=== PATIENT | male | born 1960 | race Two or more races ===

== ENCOUNTER 2020-10-18 12:52 | Outpatient (REF) | payer MEDICARE, SELFPAY | END 2020-10-18 12:53 | disposition home or self-care (01) | LOC: HO.LAB 12:52 | PROVIDERS: Visit Provider Internal Medicine | DX: Z20.822 Contact with and (suspected) exposure to COVID-19 (principal) | CPT/HCPCS: 36415; C9803; U0003; U0005 ==

== ENCOUNTER 2025-05-10 14:42 | Outpatient (AMB) | payer MEDICARE, SELFPAY ==
--- OUTSIDE RECORDS SUMMARY | 2025-05-10 16:02 | XMS_ITS | Clinical Summary ---
Author Organization [facility] [address] [facility] lding Address [address] [place] [address] Phone Care Team Providers Care Front Desk Agent Name Role Phone Danny Nuñez MD Primary Care Provider [phone] Allergies Active Allergy Reactions Criticality Noted Date Comments Other 03/21/2024 Seasonal Medications omeprazole (PriLOSEC) [address] capsule Take 1 capsule (20 mg total) by mouth 1 (one) time each day if needed. 4 Active PARoxetine (PAXIL) 40 mg tablet Take 1 tablet (40 mg total) by mouth 1 (one) time each day in the morning. Active lisinopril-hydr oCHLOROthiazide (PRINZIDE,ZESTO RETIC) 20-25 mg per tablet Take 1 tablet by mouth 1 (one) time each day. 90 tablet 1 5 Active indomethacin (INDOCIN) 50 mg capsule Take 1 capsule (50 mg total) by mouth 3 (three) times a day if needed (gout). 30 each 1 5 Active polyethylene glycol (Golytely) 236-22.74-6.74 -5.86 gram solution Take 4L by mouth once for one dose. May substitue any PEG. Starting at 6PM the night before your procedure drink 1 8oz glasses at your own pace until you complete half of the gallon. Finish 2nd half of the gallon 5 hours before your procedure. 4000 mL 5 Active bisacodyL (DULCOLAX) 5 mg EC tablet Take 2 tablets by mouth right before beginning bowel prep. See instructions provided by the office 2 tablet Active Active Problems Problem Noted Date Diagnosed Date Family history of colon cancer in father 025 Colon cancer screening 11/23/2024 Overview (11/23/2024): 05/03---5 yrs Hearing loss of left ear 01/12/2024 Obesity (BMI 30-39.9) 12/24/2022 Allergic rhinitis 06/24/2022 Hypertriglyceridemia 04/22/2016 Insomnia 04/22/2016 DDD (degenerative disc disease), lumbosacral 08/2016 Depression 01/04/2016 Essential hypertension 01/04/2016 Gastroesophageal reflux disease without esophagi tis 01/04/2016 Encounters Date Type Department Care Team Description 03/28/2025 1:22 PM EDT Anesthesia Event [facility] Endoscopy [address] [place] [phone] Deni Hagan MD Chang, Daniel J, MD 03/28/2025 11:21 AM EDT - 03/28/2025 11:59 PM EDT Hospital Encounter [facility] Endoscopy [address] [place] [phone] Troy Pacheco MD Spencer, Mark A, MD Hx of colonic polyps Discharge Disposition: Home or Self Care 03/15/2025 3:45 PM EDT Office Visit [facility] Hematology Oncology [address] [place] [phone] Chris Jett MD Neutropenia, unspecified type (CMS/HCC V24) (Primary Dx) 02/24/2025 12:00 PM EDT Office Visit [facility] Hematology Oncology [address] [place] [phone] Chris Jett MD Neutropenia, unspecified type (CMS/HCC V24); Thrombocytopenia (CMS/HCC V24) 02/10/2025 2:00 PM EDT Office Visit Adult Medicine [address] [phone] Nora Ctoo PA Neutropenia, unspecified type ([facility] V24) (Primary Dx); Thrombocytopenia ([facility] V24); Fever, unspecified fever cause 02/07/2025 2:51 PM EDT - 02/07/2025 6:52 PM EDT Emergency [facility] Emergency [address] [place] [address] Eugenio Cerda MD Fever, unspecified fever cause (Primary Dx); Thrombocytopenia ([facility] V24) Discharge Disposition: Home or Self Care from Last 3 Months Immunizations Name Administration Dates Next Due Hep B, Unspecified 04/18/2015 Influenza Quadrivalent, 0.5m l, preservative free (Fluarix; FluLaval; Fluzone) ages 6mo and older (Afluria) 3yo and older 05/13/2016 Influenza trivalent, 0.5mL, preservative free (Fluarix; FluLaval; Fluzone) ages 6mo and older (Afluria) 3 years and older 05/13/2016,10/25/2015,05/22/2014 Influenza, Unspecified 05/19/2018 BizXchange SARS-CoV-2 COVID-19, mRNA, LNP-S, preservative free 12/11/2020,11/20/2020 Tdap Tetanus diptheria acell ular pertussis (Boostrix; Adacel) 7yo and older 11/22/2024,07/12/2014 Zoster recombinant (Shingrix ) 19yo and older 12/23/2021,06/24/2021 Surgical History Surgery Date Site/Laterality Comments EYE SURGERY 2010 Left PROCEDURE: HISTORICAL EYE SURGERY COLONOSCOPY Medical History Medical History Date Comments DDD (degenerative disc disea se), lumbosacral 01/24/2016 DX:DDD (degenerative disc disease), lumbosacral Depression 01/04/2016 DX:Depression Essential hypertension 01/04/2016 DX:Essent ial hypertension Gastroesophageal reflux dise ase without esophagitis 01/04/2016 DX:Gastroesophageal reflux disease without esophagitis Hypertriglyceridemia 04/22/2016 DX:Hypertri glyceridemia Insomnia 04/22/2016 DX:Insomnia Gout Family History Medical History Relation Name Comments Hypertension Brother Cataracts Father Hypertension Father Prostate cancer Father Colon cancer Maternal Grandfather Diabetes Mother Other: ovarian cancer Mother stomac h history Colon cancer Paternal Grandmother Other: heart attack Son age 27 d eceased Blindness Neg Hx Glaucoma Neg Hx Macular degeneration Neg Hx Strabismus Neg Hx Relation Name Status Comments Brother Father Maternal Grandfather Mother Paternal Grandmother Son Social History Tobacco Use Types Packs/Day Years Used Date Smoking Tobacco: Never Smokeless Tobacco: Never Tobacco Cessation:Counseling Given: Not Answered Alcohol Use Standard Drinks/Week Comments No 0 (1 standard drink = 0.6 oz pur e alcohol) Housing Instability Answer Date Recorde d Are you worried that in the next 2 months you may not have stable housing? No 11/21/2024 Food Access & Nutrition Answer Date Rec orded Do you have access to a vari ety of food including fruits and vegetables? Yes 11/21/2024 Access to Healthcare Answer Date Record ed Within the last 3 months, ho w many times did you visit the emergency department for your medical care? 0 11/21/2024 Health Literacy Answer Date Recorded How often do you need to hav e someone help you when you read instructions, pamphlets, or other written material from your doctor or pharmacy? Never 11/21/2024 Caregiver: How often do you need to have someone help you when you read instructions, pamphlets, or other written material from your doctor or pharmacy? Not on file 11/21/2024 Financial Risk Answer Date Recorded How hard is it for you to pa y for the very basics like food, housing, medical care, and air conditioning / heating? Not very hard 11/21/2024 Transportation Answer Date Recorded Has the lack of transportati on kept you from meetings, work, or from getting things needed for daily living? No Has the lack of transportati on kept you from medical appointments or from getting medications? No 11/21/2024 Social Isolation Answer Date Recorded How often do you feel lonely or isolated from th ose around you? Never 11/21/2024 Food Risk Answer Date Recorded Within the past 12 months we worried whether our food would run out before we got money to buy more. Never true 11/21/2024 Within the past 12 months th e food we bought just didn't last and we didn't have money to get more. Never true 11/21/2024 Dependent Care Answer Date Recorded Do you need help finding or paying for care for your loved ones. For example, early childhood coordinator or elderly care for an older adult? No 11/21/2024 Education Answer Date Recorded Do you think completing more education or training, like finishing a GED, going to college, or learning a trade, would be helpful for you? No 11/21/2024 Employment and Income Answer Date Recor ded During the last four weeks, have you been actively looking for work? No 11/21/2024 Living Situation Answer Date Recorded What is your living situation? 0 11/21/2024 Interpersonal Safety Answer Date Record ed Physical Abuse 03/28/2025 Verbal Abuse 03/28/2025 Sex and Gender Information Value Date Recorded Sex Assigned at Male 02/07/2025 3:14 PM EDT Legal Sex Male 6:16 PM EST Gender Identity Male 02/07/2025 3:14 PM EDT Sexual Orientation Straight 02/07/2025 3: 14 PM EDT Obstetrics History Last Filed Vital Signs Vital Sign Reading Time Taken Comments Blood Pressure 121/74 03/28/2025 1:52 PM EDT Pulse 67 03/28/2025 1:52 PM EDT Temperature 36.6 C (97.8 F) 03/28/2025 1:32 PM EDT Respiratory Rate 14 03/28/2025 1:52 PM EDT Oxygen Saturation 100% 03/28/2025 1:52 PM EDT Inhaled Oxygen Concentration - - Weight 90.7 kg (200 lb) 03/28/2025 12:24 PM EDT Height 175.3 cm (5' 9 ) 03/28/2025 12:24 PM EDT Body Mass Index 29.53 03/28/2025 12:24 PM EDT Plan of Treatment Upcoming Encounters Date Type Department Care Team (Late st Contact Info) Description 05/30/2025 10:30 AM EDT Office Visit Adult Medicine - [facility] [address] [place] [phone] Danny Nuñez MD [address] [place] [address] Health Maintenance Due Date Last Done Comments Hepatitis B Vaccines (2 of 3 - 19+ 3-dose series) 05/16/2015 04/18/2015 Medicare Annual Wellness Visit 08/23/2022 COVID-19 Vaccine ( season) 2024 09/12/2022, 09/11/2021, 12/11/2020, Additional history exists Depression Screening 09/14/2024 Influenza Vaccine (#1) 2025 , 09/14/2022, 06/27/2022, Additional history exists Social Influencers of Health Screening 11/21/2025 11/21/2024 Hypertension/CHF/CAD Annual BMP Blood Test 02/07/2026 02/07/2025, 01/12/2025, 01/12/2024, Additional history exists Cholesterol Screening (Lipid Panel) 01/12/2030 01/12/2025, 01/12/2024, 01/12/2024 DTaP,Tdap,and Td Vaccines (3 - Td or Tdap) 11/22/2034 11/22/2024, 07/12/2014, 07/12/2014 Colorectal Cancer Screening: Colonoscopy 03/28/2035 03/28/2025, 05/07/2020 RSV Immunization Adult Patients (1 - 1-dose 75+ series) 02/04/2036 HIV Screening Completed 01/04/2016 Hepatitis C Screening Completed 01/04/2016 Zoster Vaccines Completed 12/23/2021, 09/15, 07/09/2021, Additional history exists HIB Vaccines Aged Out No longer eligi ble based on patient's age to complete this topic HPV Vaccines Aged Out No longer eligi ble based on patient's age to complete this topic Hepatitis A Vaccines Aged Out No long er eligible based on patient's age to complete this topic IPV Vaccines Aged Out No longer eligi ble based on patient's age to complete this topic MMR Vaccines Aged Out No longer eligi ble based on patient's age to complete this topic Meningococcal ACWY Vaccine Aged Out N o longer eligible based on patient's age to complete this topic Meningococcal B Vaccine Aged Out No l onger eligible based on patient's age to complete this topic Pneumococcal Vaccine: 50+ Years Discontinued RSV Immunization Patients Under 20 months Aged Out No longer eligible based on patient's age to complete this topic Varicella Vaccines Aged Out No longer eligible based on patient's age to complete this topic Procedures Procedure Name Priority Date/Time Associated Diagnosis Comments COLONOSCOPY Routine 03/28/2025 1:31 PM EDT Hx of colonic polyps CBC WITH AUTO DIFFERENTIAL Routine 02/24/2025 1:09 PM EDT Neutropenia, unspecified type (CMS/HCC V24) Thrombocytopenia (CMS/HCC V24) RETICULOCYTE COUNT Routine 02/24/2025 1: 09 PM EDT Neutropenia, unspecified type (CMS/HCC V24) Thrombocytopenia (CMS/HCC V24) CBC AND DIFFERENTIAL Routine 02/24/2025 1:09 PM EDT Neutropenia, unspecified type (CMS/HCC V24) Thrombocytopenia (CMS/HCC V24) BORRELIA BURGDORFERI ANTIBODY STAT 02/07/2025 3:46 PM EDT ANAPLASMA PHAGOCYTOPHILUM ANTIBODIES, IGG AND IGM STAT 02/07/2025 3:46 PM EDT BABESIA MICROTI ANTIBODIES, IGG AND IGM STAT 02/07/2025 3:46 PM EDT CULTURE BLOOD STAT 02/07/2025 3:46 PM EDT CULTURE BLOOD STAT 02/07/2025 3:46 PM EDT XR CHEST 2 VIEWS STAT 02/07/2025 3:41 PM EDT SUBRAMANIAN URINE CULTURE TUBE STAT 02/08/20 3:34 PM EDT URINALYSIS WITH REFLEX MICROSCOPIC AND CULTURE STAT 02/07/2025 3:34 PM EDT URINALYSIS WITH REFLEX MICROSCOPIC AND CULTURE STAT 02/07/2025 3:34 PM EDT CULTURE URINE STAT 02/07/2025 3:34 PM EDT RESPIRATORY VIRUS PANEL MOLECULAR STUDY STAT 02/07/2025 3:34 PM EDT MANUAL DIFFERENTIAL - SYSMEX WAM STAT 02/07/2025 11:56 AM EDT PATHOLOGIST REVIEW BLOOD SMEAR STAT 02/07/2025 11:56 AM EDT CBC WITH AUTO DIFFERENTIAL STAT 02/07/2025 11:56 AM EDT MAGNESIUM STAT 02/07/2025 11:56 AM EDT BASIC METABOLIC PANEL STAT 02/07/2025 11:56 AM EDT CBC AND DIFFERENTIAL STAT 02/07/2025 11:56 AM EDT [id number], RSV, FLU A AND B QUALITATIVE RT-PCR, INTERNAL LAB STAT 02/07/2025 11:55 AM EDT LIPID PANEL WITH REFLEX TO DIRECT LDL Routine 01/12/2025 12:30 PM EDT Hypertriglyceridemi a HEPATITIS C SCREENING Routine 01/04/2016 HIV SCREENING Routine 01/04/2016 from Last 3 Months or Most Recently Relevant to Health Maintenance Results * COLONOSCOPY Anesthesia - MAC; [facility] ENDOSCOPY (03/28/2025 1:31 PM EDT) Anatomical Region Laterality Modality Other 03/28/2025 1:14 PM EDT Impressions 03/28/2025 1:35 PM EDT - The entire examined colon is normal. - No specimens collected. Recommendation: - Repeat colonoscopy in 5 years for surveillance. Narrative 03/28/2025 1:35 PM EDT [facility] GI Patient Name: Javi Pena Procedure Date: 03/28/2025 1:14 PM Date of : 1960 Age: 65 Gender: Male Note Status: Finalized Attending MD: Troy Pacheco MD, Procedure Date No Time: 03/28/2025 Procedure: Colonoscopy Indications: High risk colon cancer surveillance: Personal history of colonic polyps Providers: Troy Pacheco MD Referring MD: Troy Pacheco MD Medicines: Propofol per Anesthesia Complications: No immediate complications. Estimated Blood Loss: Estimated blood loss: none. Procedure: Pre-Anesthesia Assessment: - ASA Grade Assessment: II - A patient with mild systemic disease. After I obtained informed consent, the scope was passed under direct vision. Throughout the procedure, the patient's blood pressure, pulse, and oxygen saturations were monitored continuously.The Colonoscope was introduced through the anus and advanced to the cecum, identified by appendiceal orifice and ileocecal valve. The colonoscopy was performed without difficulty. The patient tolerated the procedure well. The quality of the bowel preparation was good. Findings: The perianal and digital rectal examinations were normal. The entire examined colon appeared normal. Procedure Code(s): --- Professional --- G0105, Colorectal cancer screening; colonoscopy on individual at high risk Diagnosis Code(s): --- Professional --- Z86.010, Personal history of colonic polyps CPT copyright 2020 [employer] [employer]. All rights reserved. The codes documented in this report are preliminary and upon emr specialist review may be revised to meet current compliance requirements. Troy Pacheco MD 03/28/2025 1:35:26 PM This report has been signed electronically.Troy Pacheco MD Number of Addenda: 0 Note Initiated On: 03/28/2025 1:14 PM Scope In: Scope Out: Endoscopy Department at [facility] - [address] [place] [phone] Procedure Note Troy Pacheco MD - 03/28/2025 [facility] GI Patient Name: Javi Pena Procedure Date: 03/28/2025 1:14 PM Date of : 1960 Age: 65 Gender: Male Note Status: Finalized Attending MD: Troy Pacheco MD, Procedure Date No Time: 03/28/2025 Procedure: Colonoscopy Indications: High risk colon cancer surveillance: Personalhistory of colonic polyps Providers: Troy Pacheco MD Referring MD: Troy Pacheco MD Medicines: Propofol per Anesthesia Complications: No immediate complications. Estimated Blood Loss: Estimated blood loss: none. Procedure: Pre-Anesthesia Assessment: - ASA Grade Assessment: II - A patient with mild systemic disease. After I obtained informed consent, the scope was passed under direct vision. Throughout theprocedure, the patient's blood pressure, pulse, and oxygen saturations were monitored continuously.The Colonoscope was introduced through the anus and advanced to the cecum, identified by appendiceal orifice and ileocecal valve. The colonoscopy was performed without difficulty. The patient tolerated the procedure well. The quality of the bowel preparation was good. Findings: The perianal and digital rectal examinations were normal. The entire examined colon appeared normal. Procedure Code(s): --- Professional --- G0105, Colorectal cancer screening; colonoscopy on individual at high risk Diagnosis Code(s): --- Professional --- Z86.010, Personal history of colonic polyps CPT copyright 2020 [employer]. All rights reserved. The codes documented in this report are preliminary and upon emr specialist reviewmay be revised to meet current compliance requirements. Troy Pacheco MD 03/28/2025 1:35:26 PM This report has been signed electronically.Troy Pacheco MD Number of Addenda: 0 Note Initiated On: 03/28/2025 1:14 PM Scope In: Scope Out: Endoscopy Department at [facility] - [address] [place] [phone] IMPRESSION: - The entire examined colon is normal. - No specimens collected. Recommendation: - Repeat colonoscopy in 5 years for surveillance. us Troy Pacheco MD GI~PROCEDURE ORDERABLES Final Re sult * (ABNORMAL) CBC auto differential (02/24/2025 1:09 PM EDT) Only the most recent of2 resultswithin the time period is included. WBC 4.7(L) 4.8 - 10.8 K/[facility] LAB HEMETOLOGY METHOD 02/24/2025 1:38 PM EDT [facility] RBC 4.90 4.50 - 5.50 M/[facility] LAB HEMETOLOGY METHOD 02/24/2025 1:38 PM EDT [facility] LAB Hemoglobin 13.9 13.5 - 17.5 g/dL LAB HEMETOLOGY METHOD 02/24/2025 1:38 PM EDT [facility] LAB Hematocrit 42.7 42.0 - 54.0 % LAB HEMETOLOGY METHOD [facility]25 [facility] MCV 87.5 79.0 - 98.0 FL LAB HEMETOLOGY METHOD 02/24/2025 1:38 PM EDT [facility] MCH 28.5 27.0 - 32.0 pcg LAB HEMETOLOGY METHOD 02/24/2025 1:38 [facility] MCHC 32.6 32.0 - 37.0 g/dL LAB HEMETOLOGY METHOD 02/24/2025 1:38 PM [facility] LAB RDW 13.1 11.0 - 15.0 % LAB HEMETOLOGY METHOD 02/24/2025 1:38 [facility] Platelets 216 130 - 400 K/mcL LAB HEMETOLOGY METHOD 02/24/2025 1:38 PM [facility] LAB MPV 9.7 7.0 - 11.0 FL LAB HEMETOLOGY METHOD 02/24/2025 1:38 PM [facility] LAB NRBC 0.0 <1.0 % LAB HEMETOLOGY METHOD 02/24/2025 1:38 PM EDT [facility] NRBC Absolute 0.00 <0.10 K/mcL LAB HEMETOLOGY METHOD 02/24/2025 1:38 [facility] Neutrophils Relative 54.0 % LAB HEMETOLOGY METHOD 02/24/2025 1:38 [facility] Lymphocytes Relative 34.2 % LAB HEMETOLOGY METHOD 02/24/2025 1:38 [facility] Monocytes Relative 9.5 % LAB HEMETOLOGY METHOD 02/24/2025 1:38 PM EDT [facility] Eosinophils Relative 1.3 % LAB HEMETOLOGY METHOD 02/24/2025 1:38 PM EDT [facility] Basophils Relative 0.6 % LAB HEMETOLOGY METHOD 02/24/2025 1:38 PM EDT [facility] Immature Granulocytes Relative 0.4 % LAB HEMETOLOGY METHOD 02/24/2025 1:38 PM EDT [facility] Neutrophils Absolute 2.56 1.50 - 7.00 K/mcL LAB HEMETOLOGY METHOD 02/24/2025 1:38 PM EDT [facility] Lymphocytes Absolute 1.62 1.00 - 5.00 K/mcL LAB HEMETOLOGY METHOD 02/24/2025 1:38 PM EDT [facility] Monocytes Absolute 0.45 0.20 - 1.00 K/mcL LAB HEMETOLOGY METHOD 02/24/2025 1:38 PM EDT [facility] Eosinophils Absolute 0.06 0.00 - 0.50 K/mcL LAB HEMETOLOGY METHOD 02/24/2025 1:38 PM EDT [facility] Basophils Absolute 0.03 0.00 - 0.20 K/mcL LAB HEMETOLOGY METHOD 02/24/2025 1:38 PM EDT [facility] Immature Granulocytes Absolute 0.02 0.00 - 0.03 K/mcL LAB HEMETOLOGY METHOD 02/24/2025 1:38 PM EDT [facility] Blood Venous blood specimen / Unknown Venipuncture / Unknown 02/24/2025 1:09 PM EDT 02/24/2025 1:30 PM EDT us Chris U Johnie GALVAN LAB BLOOD ORDERABLES Final R esult [facility] [address] [place] [address], [place] [phone] * Reticulocyte count (02/24/2025 1:09 PM EDT) [facility] Retic Ct Abs 0.080 0.030 - 0.090 M/mcL LAB HEMETOLOGY METHOD 02/24/2025 1:38 PM EDT [facility] LAB Retic Ct Pct 1.7 0.7 - 1.7 % LAB HEMETOLOGY METHOD 02/24/2025 1:38 PM EDT [facility] Immature Retic Fract 9.0 2.3 - 15.9 % LAB HEMETOLOGY METHOD 02/24/2025 1:38 PM EDT [facility] Reticulocyte Hemoglobin 32.9 >29.0 pcg LAB HEMETOLOGY METHOD 02/24/2025 1:38 PM EDT [facility] Blood Venous blood specimen / Unknown Venipuncture / Unknown 02/24/2025 1:09 PM EDT 02/24/2025 1:30 PM EDT Chris Jett MD LAB BLOOD ORDERABLES Final R esult [facility] [address] [place] [address], [place] [phone] * Babesia microti antibodies, IGG and IGM (02/07/2025 3:46 PM EDT) [facility] Babesia microti IgG Antibodies <1:64 02/14/2025 7:41 PM EDT [facility] Babesia microti IgM Antibodies <1:20 02/14/2025 7:41 PM EDT [facility] Babesia microti Interpretation SEE NOTE 02/14/2025 7:41 PM EDT [facility] Comment: ANTIBODY NOT DETECTED REFERENCE RANGES: IgG <1:64 IgM <1:20 Elevated antibody levels to B. microti indicate exposure to the organism. Human babesiosis infection is transmitted by the bite of an infected Ixodes tick or less frequently from transfusion with blood from an infected donor. Definitive diagnosis is made by identifying intraerythrocytic organisms in peripheral blood. In patients with low parasitemia, antibody detection by IFA is recommended. IgG levels greater than or equal to 1:1024 can be detected in acute phase patients with parasites in blood smears. The IFA assay can be used as a seroepidemiologic tool to study the frequency and distribution of B. microti in endemic areas especially in persons with mixed infections also involving Borrelia burgdorferi. This test was developed and its analytical performance characteristics have been determined by [facility]. It has not been cleared or approved by FDA. This assay has been validated pursuant to the CLIA regulations and is used for clinical purposes. Test Performed at: [facility] [address] [address] Monserrat Pedraza MD, PhD Blood Venous blood specimen / Unknown Venipuncture / Unknown 02/07/2025 3:46 PM EDT 02/07/2025 3:55 PM EDT us Eugenio Cerda MD LAB BLOOD ORDERABLES Final R esult [facility] [address] [place] [address] * Anaplasma phagocytophilum antibodies, IGG and IGM (02/07/2025 3:46 PM EDT) Anaplasma phagocytophilum IgG Ab <1:64 <1:64 02/13/2025 10:02 PM EDT [facility] Anaplasma phagocytophilum IgM Ab <1:20 <1:20 02/13/2025 10:02 PM EDT [facility] Anaplasma phagocytophilum Interpretation SEE BELOW 02/13/2025 10:02 PM EDT [facility] Comment:Antibody Not Detecte d Comment SEE BELOW 02/13/2025 10:02 PM EDT [facility] Comment: Anaplasma phagocytophilum is the tick-borne agent causing Human Granulocytic Ehrlichiosis (HGE). HGE is distinct and separate from Human Monocytic Ehrlichiosis (HME), caused by Ehrlichia chaffeensis. Serologic crossreactivity between A. phagocyto- philum and E. chaffeensis is minimal (5-15%). This test was developed and its analytical performance characteristics have been determined by [facility] [place]. It has not been cleared or approved by the U.S. Food and Drug Administration. This assay has been validated pursuant to the CLIA regulations and is used for clinical purposes. Test Performed by [facility], [facility], [address] [place] [address] Eugenio Castle M.D., Ph.D., Director of Laboratories , CLIA [id number] Blood Venous blood specimen / Unknown Venipuncture / Unknown 02/07/2025 3:46 PM EDT 02/07/2025 3:55 PM EDT us Eugenio Cerda MD LAB BLOOD ORDERABLES Final R esult Performing Organization Address City/[facility]/ZIP Co de Phone Number [facility] [address] [place] [address] * Borrelia burgdorferi antibody (02/07/2025 3:46 PM EDT) [facility] Lyme Ab Negative Negative LAB CHEMISTRY METHOD 02/08/2025 10:38 AM EDT [facility] Comment: No laboratory evidence of infection with B. burgdorferi (Lyme disease). Negative results may occur in patients recently infected (<=14 days) with B. burgdorferi. If recent infection is suspected, repeat testing on a new sample collected in 7- 14 days is recommended. Blood Venous blood specimen / Unknown Venipuncture / Unknown 02/07/2025 3:46 PM EDT 02/07/2025 3:55 PM EDT us Eugenio Cerda MD LAB BLOOD ORDERABLES Final R esult Performing Organization Address City/[facility]/ZIP Co de Phone Number [facility] [address] [place] [address], * Blood Culture, Peripheral #2 (02/07/2025 3:46 PM EDT) Only the most recent of2 resultswithin the time period is included. Culture, Blood No growth at 5 days 02/12/2025 5:01 PM EDT [facility] Blood Venous blood specimen / Unknown Venipuncture / Unknown 02/07/2025 3:46 PM EDT 02/07/2025 3:55 PM EDT us Eugenio Cerda MD LAB MICROBIOLOGY - GENERAL O RDERABLES Final Result [facility] [address] [place] [address], [place] [phone] * XR Chest 2 Views (02/07/2025 3:41 PM EDT) Anatomical Region Laterality Modality Body Radiographic Elizabeth ging 02/07/2025 3:55 PM EDT Impressions 02/07/2025 3:55 PM EDT FINDINGS/IMPRESSION: Normal heart size and pulmonary vascularity. Lungs are clear and costophrenic angles are sharp. No acute osseous abnormality.. -------- FINAL REPORT -------- Dictated By: Emmanuel Gonzalez Dictated Date: 02/07/2025 15:55 ET Assigned Physician: Emmanuel Gonzalez Reviewed and Electronically Signed By: Emmanuel Gonzalez Signed Date: 02/07/2025 15:55 ET Workstation ID: [id number] Transcribed By: Self Edit Transcribed Date: 02/07/2025 15:55 ET Narrative 02/07/2025 3:55 PM EDT XR CHEST 2 VIEWS INDICATION: fever TECHNIQUE: XR CHEST 2 VIEWS COMPARISON: No priors available. Procedure Note Emmanuel Gonzalez MD - 02/07/2025 XR CHEST 2 VIEWS INDICATION: fever TECHNIQUE: XR CHEST 2 VIEWS COMPARISON: No priors available. IMPRESSION: FINDINGS/IMPRESSION: Normal heart size and pulmonary vascularity. Lungsare clear and costophrenic angles are sharp. No acute osseousabnormality.. -------- FINAL REPORT -------- Dictated By: Emmanuel Gonzalez Dictated Date: 02/07/2025 15:55 ET Assigned Physician: Emmanuel Gonzalez Reviewed and Electronically Signed By: Emmanuel Gonzalez Signed Date: 02/07/2025 15:55 ET Workstation ID: [id number] Transcribed By: Self Edit Transcribed Date: 02/07/2025 15:55 ET us Eugenio Cerda MD IMG XR PROCEDURES Final Resu lt * (ABNORMAL) Urinalysis with reflex microscopic and culture (02/07/2025 3:34 PM EDT) Specific [place] Urine 1.023 1.003 - 1.030 LAB URINALYSIS - AUTOMATED METHOD 02/07/2025 4:33 PM [facility] pH, Urine 5.5 5.0 - 8.0 pH LAB URINALYSIS - AUTOMATED METHOD 02/07/2025 4:33 PM [facility] Leukocytes, Urine Trace(A) Negative LAB URINALYSIS - AUTOMATED METHOD 02/07/2025 4:33 PM [facility] Nitrite, Urine Negative Negative LAB URINALYSIS - AUTOMATED METHOD 02/07/2025 4:33 PM [facility] Protein, Urine 100(A) <=Trace mg/dL LAB URINALYSIS - AUTOMATED METHOD 02/07/2025 4:33 PM [facility] Glucose, Urine Negative Negative mg/dL LAB URINALYSIS - AUTOMATED METHOD 02/07/2025 4:33 PM [facility] Ketones, Urine Trace(A) Negative mg/dL LAB URINALYSIS - AUTOMATED METHOD 02/07/2025 4:33 PM [facility] Urobilinogen, Urine 1.0 0.2 - 1.0 mg/dL LAB URINALYSIS - AUTOMATED METHOD 02/07/2025 4:33 PM [facility] Bilirubin, Urine Negative Negative LAB URINALYSIS - AUTOMATED METHOD 02/07/2025 4:33 PM EDT [facility] Blood, Urine Trace(A) Negative LAB URINALYSIS - AUTOMATED METHOD 02/07/2025 4:33 PM EDT [facility] RBC, Urine 4.2(H) 0 - 4 /HPF LAB URINALYSIS - AUTOMATED METHOD 02/07/2025 4:33 PM [facility] WBC, Urine 4.1(H) 0 - 4 /HPF LAB URINALYSIS - AUTOMATED METHOD 02/07/2025 4:33 PM T [facility] Squamous Epithelial, Urine 19 0 - 60 /LPF LAB URINALYSIS - AUTOMATED METHOD 02/07[facility]2025 [facility] Bacteria, Urine Negative Negative /HPF LAB URINALYSIS - AUTOMATED METHOD 02/07/2025 4:33 PM [facility] Hyaline Casts, Urine 1.6 0 - 3 /LPF LAB URINALYSIS - AUTOMATED METHOD 02/07/2025 4:33 PM [facility] Urine Urine specimen obtained by clean catch procedure / Unknown Non-blood Collection / Unknown 02/07/2025 3:34 PM EDT 02/07/2025 3:54 PM EDT us Eugenio Cerda MD LAB URINE ORDERABLES Final R esult [facility] [address] [place] [address], * Respiratory virus panel molecular study (02/07/2025 3:34 PM EDT) Pathologist [facility] Adenovirus Detection by PCR Not Detected Not Detected LAB MICROBIOLOGY METHOD 02/07/2025 4:52 PM EDT [facility] Influenza A PCR Not Detected Not Detected LAB MICROBIOLOGY METHOD 02/07/2025 4:52 PM EDT [facility] Influenza B PCR Not Detected Not Detected LAB MICROBIOLOGY METHOD 02/07/2025 4:52 PM EDT [facility] Coronavirus 229E Not Detected Not Detected LAB MICROBIOLOGY METHOD 02/07/2025 4:52 PM EDT [facility] Coronavirus HKU1 Not Detected Not Detected LAB MICROBIOLOGY METHOD 02/07/2025 4:52 PM EDT [facility] Coronavirus OC43 Not Detected Not Detected LAB MICROBIOLOGY METHOD 02/07/2025 4:52 PM EDT [facility] Coronavirus NL63 Not Detected Not Detected LAB MICROBIOLOGY METHOD 02/07/2025 4:52 PM EDT [facility] Parainfluenza Virus 1 Not Detected Not Detected LAB MICROBIOLOGY METHOD 02/07/2025 4:52 PM EDT [facility] Parainfluenza Virus 2 Not Detected Not Detected LAB MICROBIOLOGY METHOD 02/07/2025 4:52 PM EDT [facility] Parainfluenza Virus 3 Not Detected Not Detected LAB MICROBIOLOGY METHOD 02/07/2025 4:52 PM EDT [facility] Parainfluenza Virus 4 Not Detected Not Detected LAB MICROBIOLOGY METHOD 02/07/2025 4:52 PM EDT [facility] RSV PCR Not Detected Not Detected LAB MICROBIOLOGY METHOD 02/07/2025 4:52 PM EDT [facility] Human Metapneumovirus A and B Not Detected Not Detected LAB MICROBIOLOGY METHOD 02/07/2025 4:52 PM EDT [facility] Rhinovirus/Entero virus Not Detected Not Detected LAB MICROBIOLOGY METHOD 02/07/2025 4:52 PM EDT [facility] Bordetella pertussis Not Detected Not Detected LAB MICROBIOLOGY METHOD 02/07/2025 4:52 PM EDT [facility] Bordetella parapertussis Not Detected Not Detected LAB MICROBIOLOGY METHOD 02/07/2025 4:52 PM EDT [facility] Mycoplasma pneumo by PCR Not Detected Not Detected LAB MICROBIOLOGY METHOD 02/07/2025 4:52 PM EDT [facility] Chlamydia pneumoniae Not Detected Not Detected LAB MICROBIOLOGY METHOD 02/07/2025 4:52 PM EDT [facility] SARS COV-2 Not Detected Not Detected LAB MICROBIOLOGY METHOD 02/07/2025 4:52 PM EDT [facility] Swab Both anterior nares / Unknown Non-blood Collection / Unknown 02/07/2025 3:34 PM EDT 02/07/2025 3:54 PM EDT Narrative [facility] - 02/07/2025 4:52 PM EDT Testing was performed using the [employer] Respiratory Pathogen PCR Assay. All results must be correlated with the clinical findings. Results should not be used as the sole basis for diagnosis. False Negative results may occur from the presence of sequence variants in the region targeted by the assay or the presence of inhibitors. Results may be affected by concurrent antiviral/antimicrobial therapy or levels of organisms that are below the limit of detection. us Eugenio Cerda MD LAB MICROBIOLOGY - GENERAL O RDERABLES Final Result Performing Organization Address [facility]/ZIP Co de Phone Number [facility] [address] [place] [address], [place] [phone] * Subramanian urine culture tube (02/07/2025 3:34 PM EDT) Extra Tube Hold for add-ons. 02/08/2025 4:01 PM EDT [facility] Comment:Auto resulted. Urine Urine specimen obtained by clean catch procedure / Unknown Non-blood Collection / Unknown 02/07/2025 3:34 PM EDT 02/07/2025 3:54 PM EDT us Eugenio Cerda MD LAB URINE ORDERABLES Final R esult Performing Organization Address [facility]/ZIP Co de Phone Number [facility] [address] [place] [address], [place] [phone] * Culture urine (02/07/2025 3:34 PM EDT) [facility] Culture, Urine <10,000 cfu/ml, insignificant count, no further workup. 02/08/2025 10:20 AM EDT [facility] Urine Urine specimen obtained by clean catch procedure / Unknown Non-blood Collection / Unknown 02/07/2025 3:34 PM EDT 02/07/2025 4:33 PM EDT us Eugenio Cerda MD LAB MICROBIOLOGY - GENERAL O RDERABLES Final Result [facility] [address] [place] [address], * (ABNORMAL) Manual differential (02/07/2025 11:56 AM EDT) [facility] Neutrophils % 66.0 % LAB HEMETOLOGY METHOD 02/07/2025 1:26 PM EDT [facility] Bands % 9.0 % LAB HEMETOLOGY METHOD 02/07/2025 1:26 PM EDT [facility] Lymphocytes % 12.0 % LAB HEMETOLOGY METHOD 02/07/2025 1:26 PM T [facility] Reactive Lymphocyte 6.00 % LAB HEMETOLOGY METHOD 02/07/2025 1:26 PM EDT [facility] Monocytes % 6.0 % LAB HEMETOLOGY METHOD 02/07/2025 1:26 PM EDT [facility] Eosinophils % 0.0 % LAB HEMETOLOGY METHOD 02/07/2025 1:26 PM EDT [facility] Basophils % 0.0 % LAB HEMETOLOGY METHOD 02/07/2025 1:26 PM [facility] Neutrophils Absolute Manual 1.39(L) 1.50 - 7.00 K/mcL LAB HEMETOLOGY METHOD 02/07/2025 1:26 PM EDT [facility] Bands Absolute Manual 0.19(H) 0.00 - 0.00 K/mcL LAB HEMETOLOGY METHOD 02/07/2025 1:26 PM EDT [facility] Lymphocytes Absolute 0.25(L) 1.00 - 5.00 K/mcL LAB HEMETOLOGY METHOD 02/07/2025 1:26 PM EDT [facility] Reactive Lymph Abs Manual 0.13(H) 0.00 - 0.00 lym LAB HEMETOLOGY METHOD 02/07/2025 1:26 PM EDT [facility] Monocytes Absolute Manual 0.13(L) 0.20 - 1.00 K/mcL LAB HEMETOLOGY METHOD 02/07/2025 1:26 PM EDT [facility] Eosinophils Absolute Manual 0.00 0.00 - 0.50 K/mcL LAB HEMETOLOGY METHOD 02/07/2025 1:26 PM EDT [facility] Basophils Absolute Manual 0.00 0.00 - 0.20 K/mcL LAB HEMETOLOGY METHOD 02/07/2025 1:26 PM EDT [facility] Rbc Morphology Consistent with indices Consistent with indices, Normal for D[place] LAB HEMETOLOGY METHOD 02/07/2025 1:26 PM EDT [facility] Platelet Morphology - WAM See Note(A) Normal LAB HEMETOLOGY METHOD 02/07/2025 1:26 PM EDT [facility] Comment:PLT: Normal Blood Venous blood specimen / Unknown Venipuncture / Unknown 02/07/2025 11:56 AM EDT 02/07/2025 12:24 PM EDT us Eugenio Cerda MD LAB BLOOD ORDERABLES Final R esult [facility] [address] [place] [address], * Pathology review, blood smear (02/07/2025 11:56 AM EDT) Pathologist Review Blood Smear Leukopenia (including absolute neutropenia and absolute lymphopenia) and thrombocytopenia: smear not diagnostic of etiology. Reactive-appearing lymphocytes are noted. A rare possible intracytoplasmic inclusion is noted in a neutrophil. (See note.) Note: In one neutrophil, there is a small, rounded possible intracytoplasmic inclusion. The differential diagnosis includes a staining artifact or a platelet overlying the cytoplasm. Although the possibly of an intracellular organism (such as anaplasma) was considered, the morphologic features of the inclusion are not considered diagnostic of an organism. Clinical correlation and follow-up is recommended, including a follow-up CBC and smear review to assess for persistence of cytopenias. If the patient's cytopenias persist and if clinical concern for anaplasma exists additional testing would warrant consideration. 02/07/2025 4:11 PM EDT [facility] Blood Venous blood specimen / Unknown Venipuncture / Unknown 02/07/2025 11:56 AM EDT 02/07/2025 12:24 PM EDT us Eugenio Cerda MD LAB BLOOD ORDERABLES Final R esult Performing Organization Address City/[facility]/ZIP Co de Phone Number [facility] [address] [place] [address], * Magnesium (02/07/2025 11:56 AM EDT) Magnesium 2.0 1.9 - 2.6 mg/dL LAB CHEMISTRY METHOD 02/07/2025 12:52 PM EDT [facility] Blood Venous blood specimen / Unknown Venipuncture / Unknown 02/07/2025 11:56 AM EDT 02/07/2025 12:24 PM EDT us Eugenio Cerda MD LAB BLOOD ORDERABLES Final R esult [facility] [address] [place] [address], [place] [phone] * (ABNORMAL) Basic metabolic panel (02/07/2025 11:56 AM EDT) Sodium 136 133 - 145 mmol/L LAB CHEMISTRY METHOD 02/07/2025 12:52 PM [facility] Potassium 3.9 3.5 - 5.5 mmol/L LAB CHEMISTRY METHOD 02/07/2025 12:52 PM [facility] Chloride 100 96 - 110 mmol/L LAB CHEMISTRY METHOD 02/07/2025 12:52 PM [facility] CO2 28 21 - 32 mmol/L LAB CHEMISTRY METHOD 02/07/2025 12:52 PM [facility] Anion Gap 8 3 - 11 LAB CHEMISTRY METHOD 02/07/2025 12:52 PM [facility] Glucose 113(H) 70 - 100 mg/dL LAB CHEMISTRY METHOD 02/07/2025 12:52 PM [facility] BUN 12 5 - 25 mg/dL LAB CHEMISTRY METHOD 02/07/2025 12:52 PM [facility] Creatinine 1.37(H) 0.70 - 1.30 mg/dL LAB CHEMISTRY METHOD 02/07/2025 12:52 PM [facility] eGFR 58(L) >=60 mL/min/1. 73m2 LAB CHEMISTRY METHOD 02/07/2025 12:52 PM [facility] Comment:Calculation based on the Chronic Kidney Disease Epidemiology Collaboration (CKD-EPI) equation refit without adjustment for race. BUN/Creatinine Ratio 8.8 LAB CHEMISTRY METHOD 02/07/2025 12:52 PM [facility] Calcium 8.7 8.5 - 10.5 mg/dL LAB CHEMISTRY METHOD 02/07/2025 12:52 PM [facility] Blood Venous blood specimen / Unknown Venipuncture / Unknown 02/07/2025 11:56 AM EDT 02/07/2025 12:24 PM EDT us Eugenio Cerda MD LAB BLOOD ORDERABLES Final R esult [facility] [address] [place] [address], * [id number], RSV, Influenza A and B qualitative RT-PCR (02/07/2025 11:55 AM EDT) Pathologist [facility] Influenza A PCR Not Detected Not Detected LAB MICROBIOLOGY METHOD 02/07/2025 1:05 PM EDT [facility] Influenza B PCR Not Detected Not Detected LAB MICROBIOLOGY METHOD 02/07/2025 1:05 PM EDT [facility] RSV PCR Not Detected Not Detected LAB MICROBIOLOGY METHOD 02/07/2025 1:05 PM EDT [facility] SARS COV-2 Not Detected Not Detected LAB MICROBIOLOGY METHOD 02/07/2025 1:05 PM EDT [facility] Swab Both anterior nares / Unknown Non-blood Collection / Unknown 02/07/2025 11:55 AM EDT 02/07/2025 12:24 PM EDT Narrative [facility] - 02/07/2025 1:05 PM EDT Disclaimer: Testing was performed using the [employer] GeneXpert Xpress SARS-CoV-2 _Flu_RSV PLUS PCR assay. The manner in which this information is used to guide patient care is the responsibility of the healthcare provider. Results should be correlated with the clinical history, epidemiological data, and other data available to the clinician evaluating the patient. Negative results do not preclude infection. This test has been authorized by the FDA under an Emergency Use Authorization (EUA). This test is only authorized for the duration of time the declaration that circumstances exist justifying the authorization of the emergency use of in vitro diagnostic tests for detection of SARS-CoV-2 virus and/or diagnosis of COVID-19 infection under section 564 (b) (1) of the Act, 21 U.S.C 360bbb-3 (b) (1), unless the authorization is terminated or revoked sooner. Reference Range: Not Detected Fact sheet for Healthcare providers can be found at https://www.fda.gov/media/452072/download. Fact sheet for Healthcare patients can be found at https://www.fda.gov/media/554764/download. Jorge Mahajan DO LAB MICROBIOLOGY - GENERAL ORDERABLES Final Result [facility] [address] [place] [address], [place] [phone] * Lipid panel with reflex to direct LDL (01/12/2025 12:30 PM EDT) Cholesterol 143 0 - 200 mg/dL LAB CHEMISTRY METHOD 01/12/2025 3:48 PM EDT [facility] Triglycerides 106 0 - 150 mg/dL LAB CHEMISTRY METHOD 01/12/2025 3:48 PM EDT [facility] HDL 55 >=40 mg/dL LAB CHEMISTRY METHOD 01/12/2025 3:48 PM EDT [facility] LDL Calculated 67 0 - 100 mg/dL LAB CHEMISTRY METHOD 01/12/2025 3:48 PM EDT [facility] VLDL Cholesterol Patrick 21.2 mg/dL LAB CHEMISTRY METHOD 01/12/2025 3:48 PM EDT [facility] Non HDL Chol. (LDL+VLDL) 88 <145 mg/dL LAB CHEMISTRY METHOD 01/12/2025 3:48 PM EDT [facility] Chol/HDL Ratio 2.6 0.0 - 4.4 LAB CHEMISTRY METHOD 01/12/2025 3:48 PM EDT [facility] Blood Venous blood specimen / Unknown Venipuncture / Unknown 01/12/2025 12:30 PM EDT 01/12/2025 12:30 PM EDT Danny Nuñez MD LAB BLOOD ORDERABLES Final Res ult [facility] [address] [place] [address], * HIV Screening (01/04/2016) HIV Screening abstracted Historical Provider HEALTH MAINTENANCE Final Result * Hepatitis C Screening (01/04/2016) Hepatitis C Screening abstracted Historical Provider HEALTH MAINTENANCE Final Result from Last 3 Months or Most Recently Relevant to Health Maintenance Insurance [employer] Care Teams Front Desk Agent Relationship Specialty Start Date End Date Danny Nuñez MD [address] [place] [id number] PCP - General Internal Medicine 12/31/15
== END 2025-05-10 15:04 | disposition home or self-care (01) ==
LOC: HO.HMGAL 14:42
PROVIDERS: PCP Pediatrics; Visit Provider Registered Nurse Emergency
DX: J30.89 Other allergic rhinitis (principal)
CPT/HCPCS: 95117; 95165